=== PATIENT | female | born 2000 | race Two or more races ===

== ENCOUNTER → 2024-08-21 | Outpatient (CLI) | payer OTHER ==
[2024-08-21 16:17] LABS: Urine Bacteria None Seen /hpf (None Seen)
[2024-08-21 16:36] LABS: Urine Amorphous Crystal FEW /hpf (None Seen); Urine Blood Negative /uL (Negative); Urine Clarity Turbid (Clear); Urine Color Light-Yellow (Yellow); Urine Mucus FEW (None Seen); Urine Protein, UAD Negative (Negative); Urine Specific Gravity 1.015 (1.001-1.035); Urine Squamous Epithelial Cell MOD /hpf (<5); Urine Urobilinogen Normal (Negative); Urine WBC 7 /HPF (0-5); Urine pH 6.5 (5.0-9.0)
[2024-08-21 17:15] LABS: Protein, Urine 10.9 mg/dL (1-14)
[2024-08-21 17:17] LABS: Creatinine, Urine 80.63 mg/dL (30.0-125.0); Urine Protein/Creatinine Ratio 0.14
[2024-08-21 17:20] LABS: Albumin 4.3 g/dL (3.2-4.8); Anion Gap 8 (5-15); Aspartate Aminotransferase 13 U/L (13-40); Bilirubin, Total 0.3 mg/dL (0.2-1.0); Calcium 10.3 mg/dL (8.7-10.4); Carbon Dioxide 25 mmol/L (20-31); Chloride 104 mmol/L (98-107); Potassium 3.7 mmol/L (3.5-5.1); Sodium 137 mmol/L (136-145)
[2024-08-21 17:21] LABS: Alanine Aminotransferase < 9 U/L (7-40); Alkaline Phosphatase 130 U/L (46-116); BUN/Creatinine Ratio 12.5 (10.0-20.0); Blood Urea Nitrogen < 5 mg/dL (9-23); Glucose 70 mg/dL (74-106); Total Protein 6.8 g/dL (5.7-8.2)
== END | disposition home or self-care (01) ==
LOC: LAB 16:01
DX: O24.419 Gestational diabetes mellitus in pregnancy, unspecified control (principal); Z3A.00 Weeks of gestation of pregnancy not specified
CPT/HCPCS: 36415; 80053; 81001; 82570; 82951; 83036; 84156; 84550; 86850; 86900; 86901

== ENCOUNTER 2024-10-07 11:29 | Observation (INO) | payer OTHER ==
[2024-10-07] MEDS ORDERED: PREN-96 PO (12:14)
[2024-10-07] MEDS ORDERED: METF-370 PO (12:14)
--- NOTE | 2024-10-07 12:37 | DVH ---
CLINICAL HISTORY: Gestational diabetes. COMPARISON: None TECHNIQUE: biophysical profile was performed. Transabdominal sonographic images of the fetus we re obtained. FINDINGS: The fetus is in cephalic position. heart rate measures 157 BPM. Amniotic fluid index measures 11.9 cm. The placenta is anterior in position with no evidence of previa or abruption. Umbil ical cord is visualized at least partially around the neck, may be completely or near completely arou nd the neck. BPP profile is an overall score of 8/8, with 2/2 points for breathing, with at least one episode of breathing over a 30 second duration during a 30 minute observation, 2/2 points for m ovements, with 3 or more discrete body or limb movements, 2/2 points for tone, with one or more episodes of extremity extension with return to flexion, or opening and closing of hand, and 2/ 2 points for amniotic fluid, with at least 1 pocket of amniotic fluid that measures 2 cm in 2 perpend icular planes. IMPRESSION: 1. BPP score of 8/8. 2. Possible nuchal cord.
--- NOTE | 2024-10-07 13:23 | DVHDS2 ---
Physician Discharge Progress N Final Diagnosis: testing for GDM, A2 Operations or Procedures: Operations or Procedures 24yo IUP@35.2wks VSS NST reactive FKC/PTL precautions reviewed Other Interventions Other Interventions [address] [address] Ph: [phone] DIAGNOSTIC IMAGING Diagnostic Imaging Report : [id number] Signed PATIENT: MAKSIM PRIETOT: [id number] UNIT: [id number] : 2000 LOC: [facility] ROOM / BED: TRIAGE3 / A AGE / SEX: 24 / F ADM STATUS: ADM IN SERVICE 1132 ORDERING PHYSICIAN: ABBY LÓPEZ CNM PROCEDURE(s): BPP - BIOPHYSICAL PROFILE REASON: GDMA2 ORDER NUMBER(s): [id number], ACCESSION NUMBER(s): [id number] CLINICAL HISTORY: Gestational diabetes. COMPARISON: None TECHNIQUE: biophysical profile was performed. Transabdominal sonographic images of the fetus were obtained. FINDINGS: The fetus is in cephalic position. heart rate measures 157 BPM. Amniotic fluid index measures 11.9 cm. The placenta is anterior in position with no evidence of previa or abruption. Umbilical cord is visualized at least partially around the neck, may be completely or near completely around the neck. BPP profile is an overall score of 8/8, with 2/2 points for breathing, with at least one episode of breathing over a 30 second duration during a 30 minute observation, 2/2 points for movements, with 3 or more discrete body or limb movements, 2/2 points for tone, with one or more episodes of extremity extension with return to flexion, or opening and closing of hand, and 2/2 points for amniotic fluid, with at least 1 pocket of amniotic fluid that measures 2 cm in 2 perpendicular planes. IMPRESSION: 1. BPP score of 8/8. 2. Possible nuchal cord. ATED BY: HERMINIA HAYNES DO DICTATED DATE/TIME: 10/07/24 1235 SIGNED BY: HERMINIA HAYNES DO SIGNED DATE/TIME: 10/07/24 1235 CC: Condition on Discharge: Stable Disposition: Home Discharge Instructions: Diet: Consistent carbohydrate Activity: No Restrictions, As Tolerated Medications: see med list Follow Up Care: Specialist: f/u in 3 days Discharge Statement: "Patient was advised to return to the ER or call 911 if any headaches, dizziness , shortness of breath, chest pain, abdominal pain, bleeding, fevers, or worsening of medical condition. Patient was counseled about treatment plan, medications, possible side effects, patientverbalized understanding. All questions were answered to the best of my ability. This discharge took greater then 30 minutes in planning, reviewing documentation, counseling the patient, and discussing with other team members." Visit Coding OBGYN Date of Service: Oct 07, 2024 Billing Provider: ABBY LÓPEZ CNM COCONUT CANDY MAKER Common Visit Codes: [id number] OBS CARE (HIGH) COCONUT CANDY MAKER Procedure Codes: 71976-02- NON-STRESS TEST ABBY LÓPEZ CNM Oct 07, 2024 13:23
== END 2024-10-07 12:42 | disposition home or self-care (01) ==
LOC: LDRP 11:29
PROVIDERS: ADMIT Obstetrics & Gynecology; ATTEND Obstetrics & Gynecology
DX: O24.419 Gestational diabetes mellitus in pregnancy, unspecified control (principal); Z3A.35 35 weeks gestation of pregnancy
CPT/HCPCS: 76819; 81002; 82948; 94760; G0378

== ENCOUNTER 2024-10-14 13:21 | Emergency (ER) | payer OTHER ==
[~2024-10-14 13:21] MED LIST: METF-370 PO; PREN-96 PO
== END 2024-10-14 14:17 | disposition left against medical advice (07) ==
LOC: ER 13:21
DX: R05.9 Cough, unspecified (principal); Z53.21 Procedure and treatment not carried out due to patient leaving prior to being seen by health care provider

== ENCOUNTER 2024-10-14 19:32 | Observation (INO) | payer OTHER ==
[~2024-10-14] VITALS: Ht 154.9 cm; Wt 84.8 kg
--- NOTE | 2024-10-14 20:46 | DVHDS2 ---
Physician Discharge Progress N Final Diagnosis: GDM Operations or Procedures: Operations or Procedures NST/BPP YADIRA Condition on Discharge: Stable Disposition: Home Discharge Instructions: Diet: Consistent carbohydrate Activity: Light activity Follow Up/Referral: as scheduled Medications: N/A Follow Up Care: Discharge Statement: "Patient was advised to return to the ER or call 911 if any headaches, dizziness, shortness of breath, chest pain, abdominal pain, bleeding, fevers, or worsening of medical condition. Patient was counseled about treatment plan, medications, possible side effects, patientverbalized understanding. All questions were answered to the best of my ability. This discharge took greater then 30 minutes in planning, reviewing docume ntation, counseling the patient, and discussing with other team members." Visit Coding OBGYN Date of Service: Oct 14, 2024 Billing Provider: OLGA MCCONNELL DO SUMMER SESSIONS DIRECTOR Common Visit Codes: 17260-YPF/OBS SAME DATE (MOD) SUMMER SESSIONS DIRECTOR Procedure Codes: 05142-74- NON-STRESS TEST OLGA MCCONNELL DO Oct 14, 2024 20:46
--- NOTE | 2024-10-14 21:01 | DVH ---
EXAM: US BIOPHYSICAL PROFILE HISTORY: GDMA2 COMPARISON: US BIOPHYSICAL PROFILE on DOS: 10/07/24 TECHNIQUE: Multiple transabdominal real-time grayscale sonographic images through the gravid uterus of the fetus with duplex Doppler color flow and M-mode spectral analysis Findings/Impression: Single live intrauterine in vertex presentation with heart rate of 153 bpm. Biophysical profile was performed with 2 points for respirations, 2 points for movement, 2 points for tone and 2 points for amniotic fluid index. Biophysical profile score of 8/8. Amniotic fluid is within normal limits with YADIRA 14.5 cm and MVP 5.1 cm. Possible nuchal cord. Normal YADIRA (5-25 cm) Normal MVP (2-8 cm)
== END 2024-10-14 21:00 | disposition home or self-care (01) ==
LOC: LDRP 19:32
PROVIDERS: ADMIT Obstetrics & Gynecology; ATTEND Obstetrics & Gynecology
DX: O24.419 Gestational diabetes mellitus in pregnancy, unspecified control (principal); Z98.890 Other specified postprocedural states; Z79.899 Other long term (current) drug therapy; Z3A.36 36 weeks gestation of pregnancy
CPT/HCPCS: 76819; 81002; 82948; 82962; 94760; G0378

== ENCOUNTER 2024-10-17 15:10 | Observation (INO) | payer OTHER ==
--- NOTE | 2024-10-17 17:47 | DVH ---
EXAM: US BIOPHYSICAL PROFILE HISTORY: gdma2, leaking fluid COMPARISON: US BIOPHYSICAL PROFILE on DOS: 10/14/24, US BIOPHYSICAL PROFILE on DOS: 10/07/24 TECHNIQUE: Multiple transabdominal real-time grayscale sonographic images through the gravid uterus of the fetus with duplex Doppler color flow and M-mode spectral analysis Findings/Impression: Single live intrauterine in vertex presentation with heart rate of 134 bpm. Biophysical profile was performed with 2 points for respirations, 2 points for movement, 2 points for tone and 2 points for amniotic fluid index. Biophysical profile score of 8/8. Amniotic fluid is within normal limits with YADIRA 12.5 cm and MVP 6.4 cm. Possible nuchal cord. Normal YADIRA (5-25 cm) Normal MVP (2-8 cm)
--- NOTE | 2024-10-18 11:57 | DVHDS2 ---
Physician Discharge Progress N Final Diagnosis: gdm,r/o rom 36wks Operations or Procedures: Operations or Procedures nst 36wks,sono Condition on Discharge: Good Disposition: Home Discharge Instructions: Diet: Consistent carbohydrate Activity: No Restrictions, As Tolerated Medications: na Follow Up Care: Specialist: stewart sunday Discharge Statement: "Patient was advised to return to the ER or call 911 if any headaches, dizziness, shortness of breath, chest pain, abdominal pain, bleeding, fevers, or worsening of medical condition. Patient was counseled about treatment plan, medications, possible side effects, patientverbalized understanding. All questions were answered to the best of my ability. This discharge took greater then 30 minutes in planning, reviewing documentation, counseling the patient, and discussing with other team members." Visit Coding OBGYN Date of Service: Oct 17, 2024 Billing Provider: THELMA RAMIREZ DO LAP CHECKER Common Visit Codes: [id number] INP/OBS CARE(HIGH) LAP CHECKER Procedure Codes: 02609-23- NON-STRESS TEST THELMA RAMIREZ DO Oct 18, 2024 11:57
== END 2024-10-17 18:11 | disposition home or self-care (01) ==
LOC: LDRP 15:50
PROVIDERS: ADMIT Obstetrics & Gynecology; ATTEND Obstetrics & Gynecology
DX: O24.419 Gestational diabetes mellitus in pregnancy, unspecified control (principal); Z3A.36 36 weeks gestation of pregnancy; Z79.899 Other long term (current) drug therapy
CPT/HCPCS: 76819; 81002; 82948; 82962; 84112; 94760; G0378

== ENCOUNTER 2024-10-19 12:57 | Observation (INO) | payer OTHER ==
[~2024-10-19] VITALS: Ht 162.6 cm; Wt 68.0 kg
--- NOTE | 2024-10-19 14:04 | DVH ---
BIOPHYSICAL PROFILE HISTORY: GDMA2 TECHNIQUE: Multiple transabdominal real-time grayscale sonographic images through the gravid uterus of the fetus with duplex Doppler color flow and M-mode spectral analysis FINDINGS: BIOPHYSICAL PROFILE: breathing score: 2 movement score: 2 tone score: 2 Quantitative YADIRA score: 2 (YADIRA: 11.9 Cm.) Total score: 8/8 The cervix nonvisualized Single live fetus in cephalic presentation. heart rate 130 beats per minute. Anterior Grade 2 placenta without previa or abruption Single live fetus at 37 weeks 0 Biophysical profile score 8/8 corresponding to an HERMINIO of 11/09/2024 Estimated weight not given g IMPRESSION: 1. Biophysical profile score: 8/8 HS:Y
--- NOTE | 2024-10-19 17:16 | DVHDS2 ---
Physician Discharge Progress N Final Diagnosis: iup at 37wks with gdm Operations or Procedures: Operations or Procedures nst 37wks,sono Condition on Discharge: Good Disposition: Home Discharge Instructions: Diet: Regular, Consistent carbohydrate Activity: Light activity Medications: na Follow Up Care: Specialist: 2d Discharge Statement: "Patient was advised to return to the ER or call 911 if any headaches, dizziness, shortness of breath, chest pain, abdominal pain, bleeding, fevers, or worsening of medical condition. Patient was counseled about treatment plan, medications, possible side effects, patientverbalized understanding. All questions were answered to the best of my ability. This discharge took greater then 30 minutes in planning, reviewing documentation, counseling the patient, and discussing with other team members." Visit Coding OBGYN Date of Service: Oct 19, 2024 Billing Provider: THELMA RAMIREZ DO BORING MACHINE OPERATOR Common Visit Codes: [id number] INP/OBS CARE(HIGH) BORING MACHINE OPERATOR Procedure Codes: 86411-18- NON-STRESS TEST THELMA RAMIREZ DO Oct 19, 2024 17:16
== END 2024-10-19 14:26 | disposition home or self-care (01) ==
LOC: LDRP 12:57
PROVIDERS: ADMIT Obstetrics & Gynecology; ATTEND Obstetrics & Gynecology
DX: O24.419 Gestational diabetes mellitus in pregnancy, unspecified control (principal); Z3A.37 37 weeks gestation of pregnancy; Z79.899 Other long term (current) drug therapy; Z98.890 Other specified postprocedural states
CPT/HCPCS: 76818; 81002; 82962; 94760; G0378; 76819

== ENCOUNTER 2024-10-22 11:54 | Observation (INO) | payer OTHER ==
[~2024-10-22] VITALS: Ht 154.9 cm; Wt 86.2 kg
--- NOTE | 2024-10-22 12:49 | DVH ---
BIOPHYSICAL PROFILE HISTORY: GDMA1, nuchal x2 TECHNIQUE: Multiple transabdominal real-time grayscale sonographic images through the gravid uterus of the fetus with duplex Doppler color flow and M-mode spectral analysis FINDINGS: BIOPHYSICAL PROFILE: breathing score: 2 movement score: 2 tone score: 2 Quantitative YADIRA score: 2 (YADIRA: 10.0 Cm.) Total score: 8/8 Single live fetus in Vertex presentation. heart rate 128 beats per minute. Anterior placenta without previa or abruption Biophysical profile score 8/8 corresponding to an HERMINIO of 11/09/24 IMPRESSION: Biophysical profile score: 8/8 A nuchal cord x 1 is visualized.
== END 2024-10-22 13:27 | disposition home or self-care (01) ==
LOC: UNDOADMOB 11:54 → LDRP 11:54 → UNDODISOB 13:27
PROVIDERS: ADMIT Obstetrics & Gynecology; ATTEND Obstetrics & Gynecology
DX: O24.419 Gestational diabetes mellitus in pregnancy, unspecified control (principal); O69.81X0 Labor and delivery complicated by cord around neck, without compression, not applicable or unspecified; Z3A.37 37 weeks gestation of pregnancy; Z79.899 Other long term (current) drug therapy
CPT/HCPCS: 76819; 81002; 82948; 82962; 94760; G0378

== ENCOUNTER 2024-10-25 09:25 | Observation (INO) | payer OTHER ==
[~2024-10-25] VITALS: Ht 154.9 cm; Wt 84.4 kg
--- NOTE | 2024-10-25 20:37 | DVH ---
BIOPHYSICAL PROFILE HISTORY: GDM TECHNIQUE: Multiple transabdominal real-time grayscale sonographic images through the gravid uterus of the fetus with duplex Doppler color flow and M-mode spectral analysis FINDINGS: BIOPHYSICAL PROFILE: breathing score: 2 movement score: 2 tone score: 2 Quantitative: 2 YADIRA score: 15.17 (YADIRA: 7.33 Cm.) Total score: 8/8 The cervix not measured Single live fetus in cephalic presentation. heart rate 157 beats per minute. Anterior Grade 2-3 placenta without previa or abruption Single live fetus at 37 weeks 6 Biophysical profile score 8/8 corresponding to an HERMINIO of 11/09/2024 Estimated weight calculus g IMPRESSION: 1. Biophysical profile score: 8/8 2. Nuchal cord seen on prior study.
--- NOTE | 2024-10-26 09:00 | DVHDS2 ---
Physician Discharge Progress N Final Diagnosis: gdm 37wks Operations or Procedures: Operations or Procedures nst,sono Condition on Discharge: Good Disposition: Home Discharge Instructions: Diet: Regular, Consistent carbohydrate Activity: Light activity Medications: na Follow Up Care: Specialist: 3d Discharge Statement: "Patient was advised to return to the ER or call 911 if any headaches, dizziness, shortness of breath, chest pain, abdominal pain, bleeding, fevers, or worsening of medical condition. Patient was counseled about treatment plan, medications, possible side effects, patientverbalized understanding. All questions were answered to the best of my ability. This discharge took greater then 30 minutes in planning, reviewing documentation, counseling the patient, and discussing with other team members." Visit Coding OBGYN Date of Service: Oct 25, 2024 Billing Provider: THELMA RAMIREZ DO ULTRASOUND TECH Common Visit Codes: [id number] INP/OBS CARE (HIGH) ULTRASOUND TECH Procedure Codes: 64442-41- NON-STRESS TEST THELMA RAMIREZ DO Oct 26, 2024 09:00
== END 2024-10-25 20:52 | disposition home or self-care (01) ==
LOC: LDRP 19:26
PROVIDERS: ADMIT Obstetrics & Gynecology; ATTEND Obstetrics & Gynecology
DX: O24.419 Gestational diabetes mellitus in pregnancy, unspecified control (principal); Z3A.37 37 weeks gestation of pregnancy; Z79.899 Other long term (current) drug therapy; Z98.890 Other specified postprocedural states
CPT/HCPCS: 76818; 81002; 94760; G0378; 76819

== ENCOUNTER 2024-10-28 20:06 | Inpatient (IN) | payer OTHER ==
[~2024-10-28] VITALS: Ht 157.5 cm; Wt 81.6 kg
[2024-10-28] MEDS ORDERED: NALBUPHINE HCL 10 MG/1ml INJECTION IV PRN (21:00)
[2024-10-28] MEDS ORDERED: NITROGLYCERIN 0.4 MG SL TAB SL PRN (21:00)
[2024-10-28] MEDS ORDERED: LIDOCAINE 2%HCL (LOCAL ANESTH.) INJ 20ML MDV IJ PRN (21:00)
[2024-10-28] MEDS ORDERED: LACT. RINGERS/OXYTOCIN 20UNITS 500 ML IV ONE (21:00)
[2024-10-28] MEDS ORDERED: MORPHINE SULFATE INJ 2 MG/ml SYRG IV PRN (21:00)
--- NOTE | 2024-10-28 21:41 | DVHHP2 ---
OB CC & HPI Date Date of Admission: Oct 28, 2024 Patient Identification: : 2 Para: 1 EDC: Nov 09, 2024 EGA: 38.2 weeks Chief Complaints: Reason for admission: induction of labor Indication for induction: maternal distance, other (GDM A2) Admission Nurse Assessment Rev: Yes History of Present Complaints 24 yo F IUP@38.2wks presents to labor and delivery for IOL for GDM A2. Pt denies UCs/LOF/VB/ROBLES/vision changes/RUQ pain. Endorses +FM. PNC: Routine PNC at [facility], adequate visits, PNC complicated by GDM A2. Dating based on LMP c/w 7wk sono, GBS negative. OB hx: #1 - 2019, , PreE, PPH w/blood transfusion #2 - current Past Medical History Cardiac: No pertinent Hx Pulmonary: No pertinent Hx Central Nervous System: No pertinent Hx GI: No pertinent Hx Hemotology/Oncology: No pertinent Hx Hepatobiliary: No pertinent Hx Psychiatric: Anxiety (not on medication), Depression (not on medication) Musculoskeletal: No pertinent Hx Rheumotologic: No pertinent Hx Infectious Disease: No peritnent Hx ENT: No pertinent Hx Renal/: No pertinent Hx Endocrine: No pertinent Hx Dermatology: No pertinent Hx Past Surgical History: Other (wisdom teeth extractions under sedation) OB History OB History Care: Good Care Ultrasounds: Normal mid trimester US Obstetrical Complications: Gestational Diabetes (A2) Medical Complications: Psychiatric (Anxiety/Depression (not on meds)) Allergies: Coded Allergies: Oxycodone (Verified Allergy, Unknown, 10/07/24) Home Meds Reported Medications Vit W/ Ferrous Fumara ( One Daily) Daily Tab, 1 TAB PO DAILY, #90 TAB 3 Refills 10/07/24 Metformin Hydrochloride (Metformin Hcl) 500 Mg Tab, 500 MG PO DAILY for 30 Days, MG 10/07/24 Current Medications Current Medications Medications (Trade) Dose Ordered Sig/Malika Route PRN Reason Start Time Stop Time Status Last Admin Lactated Ringer's 1,000 ml @ 125 mls/hr Q8H IV 10/28/24 21:00 UNV Nalbuphine HCl (Nubain) 10 mg Q4HP PRN IV MODERATE PAIN (4-6 PAIN SCALE) 10/28/24 21:00 UNV Witch Kisha (Tucks) 1 pad PRN PRN TOP PERINEAL AREA DISCOMFORT 10/28/24 21:00 UNV Sodium Lauryl Sulfate (Phisoderm) 240 ml PRN PRN TOP PERINEAL AREA DISCOMFORT 10/28/24 21:00 UNV Benzocaine (Dermoplast) 1 applic PRN PRN TOP PERINEAL AREA DISCOMFORT 10/28/24 21:00 UNV Misoprostol (Cytotec) 50 mcg Q4HPRN PRN PO CERVICAL RIPENING 10/28/24 21:00 UNV Lidocaine HCl (Xylocaine) 20 ml ONCE PRN IJ PERINEAL AREA DISCOMFORT 10/28/24 21:00 UNV Nitroglycerin (Ntrostat Sublingual) 0.4 mg Q5MINP PRN SL FOR CHEST PAIN 10/28/24 21:00 UNV Morphine Sulfate 2 mg Q30M PRN IV FOR CHEST PAIN 10/28/24 21:00 UNV Ondansetron HCl (Zofran) 4 mg Q6HPRN PRN IV NAUSEA / VOMITING 10/28/24 21:00 UNV Family & Social History Family/Social History Past Family/Social History: Mother- diabetes Blood Type: O- (received at 36 wks) Rubella: immune RPR/VDRL: Negative GBS Status: Negative HBsAG: Negative Review of Systems Constitutional: No symptom reported Ears, Nose, & Throat: No symptom reported Eyes: No symptom reported Pulmonary/Respiratory: No symptom reported Cardiovascular: No symptom reported Gastrointestinal: No symptom reported Genitourinary: No symptom reported Musculoskeletal: No symptom reported Skin: No symptom reported Psychiatric: No symptom reported Endocrine: No symptom reported Hemotologic/Lymphatic: No symptom reported OB Admission Exam Physical Exam Vitals: VSS, see chart HEENT: TMs Normal, Fontanelles Normal, Nasal Mucosa Normal, Eyes non-injected, Oropharynx Normal, PERRLA, Moist Membranes, EOMI Heart: Rhythm Normal Lungs: Clear Abdomen: Gravid Extremities: Normal Reflexes: Normal Pelvic Exam: Cervical exam done by RN Cervical Dilatation: Fingertip Effacement: 0% Station: -3 Membranes: Intact Heart Rate: 140's Accelerations: Accelerations Present Decelerations: No Decelerations Short Term Variability: Present Respiratory Physician Variability: Average (6-25) Contractions on Admission: 6-10 Minutes Apart Frequency of Contractions: 2-10 Duration: 40-80 Intensity: Mild OB Plan Plan Admitting Diagnosis: 23yo IUP@38.2wks Induction of Labor for GDM A2 and maternal distance RH Negative Category I EFM Intact Membranes GBS negative GBS negative Plan: Induction Induction Methd: Misoprostol protocol Other Plan: Admit to L&D Informed consent obtained Discussed risks, benefits, alternatives of IOL for GDM,A2 and maternal distance with pt. Pt consents to IOL with PO cytotec. Discussed potential of starting pitocin later with pt. Pt agrees with POC. Blood sugar monitoring q4hrs then q2hrs in active labor 2 units PRBC on hold ordered monitoring per order Routine labs ordered Pain mgmt PRN Frequent position changes in and out of bed encouraged Limit SVE unless necessary Intrauterine resuscitation PRN Anticipate CNM will consult with Dr. Gonzáles PRN Visit Coding OBGYN Date of Service: Oct 28, 2024 Billing Provider: ABBY LÓPEZ CNM PICK REMOVER Common Visit Codes: [id number] INP/OBS CARE (HIGH) KARLEE TOLEDO MDWF Oct 28, 2024 21:41
[2024-10-28 22:13] LABS: Basophils # (auto) 0 10 ^3/uL (0-0.2); Basophils % (auto) 0.5 % (0.0-2.0); Eosinophils # (auto) 0.1 10 ^3/uL (0-0.8); Eosinophils % (auto) 1.7 % (0.0-7.0); Hematocrit 33.7 % (36.0-46.0); Hemoglobin 11.7 g/dL (12.2-16.2); Lymphocytes % (auto) 23.2 % (10.0-50.0); Mean Corpuscular Hemoglobin 29.4 pg (28.0-32.0); Mean Corpuscular Hgb Conc. 34.7 g/dL (32.0-36.0); Mean Corpuscular Volume 84.6 fL (80.0-100.0); Monocytes # (auto) 0.6 10 ^3/uL (0-1.3); Monocytes % (auto) 6.4 % (0.0-12.0); Neutrophils # (auto) 5.9 10 ^3/uL (1.6-8.6); Neutrophils % (auto) 68.2 % (37.0-80.0); Nucleated Red Blood Cells % 0.1 %; Platelet Count (auto) 218 10^3/uL (140-450); Red Blood Cells 3.98 10^6/uL (4.0-5.20); Red Cell Distribution Width 14.8 % (11.8-14.3); White Blood Cell 8.7 10^3/uL (4.4-10.8)
[2024-10-28 22:25] LABS: Albumin 3.9 g/dL (3.2-4.8); Anion Gap 12 (5-15); Aspartate Aminotransferase 18 U/L (13-40); BUN/Creatinine Ratio 14.3 (10.0-20.0); Calcium 9.4 mg/dL (8.7-10.4); Carbon Dioxide 21 mmol/L (20-31); Chloride 105 mmol/L (98-107); Sodium 138 mmol/L (136-145); Total Protein 5.9 g/dL (5.7-8.2); Urine Bacteria FEW /hpf (None Seen); Urine Blood Negative /uL (Negative); Urine Clarity Clear (Clear); Urine Color Light-Yellow (Yellow); Urine Protein, UAD Negative (Negative); Urine Specific Gravity 1.014 (1.001-1.035); Urine Squamous Epithelial Cell FEW /hpf (<5); Urine Urobilinogen Normal (Negative); Urine WBC 1 /HPF (0-5); Urine pH 6.5 (5.0-9.0)
[2024-10-28 22:34] LABS: INR 0.97 (0.9-1.15); Partial Thromboplastin Time 25.4 SEC (24.5-34.5); Prothrombin Time 10.3 sec (9.3-11.8)
[2024-10-28 22:38] LABS: Alanine Aminotransferase < 9 U/L (7-40); Alkaline Phosphatase 185 U/L (46-116); Amphetamine Screen, Urine Neg (NEGATIVE); Barbiturate Scree,Urine Neg (NEGATIVE); Benzodiazephine Screen, Urine Neg (NEGATIVE); Bilirubin, Total 0.3 mg/dL (0.2-1.0); Blood Urea Nitrogen 6 mg/dL (9-23); Cannabinoid Screen, Urine Neg (NEGATIVE); Cocaine Screen, Urine Neg (NEGATIVE); Glucose 121 mg/dL (74-106); Opiate Scree,Urine Neg (NEGATIVE); Phencyclidine Screen, Urine Neg (NEGATIVE); Potassium 3.1 mmol/L (3.5-5.1)
[2024-10-28] MEDS: LACTATED RINGER'S 1,000 ML IV SCH (23:20)
[2024-10-28] MEDS: WITCH HAZEL-GLYCERIN PAD TOP PRN (23:21)
[2024-10-28] MEDS: POTASSIUM CHL 20 Meq TABLET PO ONE (23:21)
[2024-10-28] MEDS: PHISODERM TOP SOLN 240ML BTL TOP PRN (23:21)
[2024-10-28] MEDS: DERMOPLAST 60ML BOTTLE TOP PRN (23:21)
[2024-10-28] MEDS: miSOPROStol 50 MCG per PRE-CUT 1/2 TAB PO PRN (23:44)
--- NOTE | 2024-10-29 00:23 | DVH ---
OB ULTRASOUND, LIMITED CLINICAL INDICATION: induction of labor/ unable to confirm presenting part TECHNIQUE: Limited Multiple grayscale ultrasound and M-mode images were obtained of the pelvis for ev aluation of intrauterine . COMPARISON: None FINDINGS /impression: Cephalic presentation of the intrauterine .
--- NOTE | 2024-10-29 07:45 | DVHPN2 ---
Chief Complaints Patient reports: No new complaints Nursing reports: No new complaints Objective Medications Current Medications Medications (Trade) Dose Ordered Sig/Malika Route PRN Reason Start Time Stop Time Status Last Admin Benzocaine (Dermoplast) 1 applic PRN PRN TOP PERINEAL AREA DISCOMFORT 10/28/24 21:00 10/28/24 23:21 Lactated Ringer's 1,000 ml @ 125 mls/hr Q8H IV 10/28/24 21:00 10/29/24 01:53 Lidocaine HCl (Xylocaine) 20 ml ONCE PRN IJ PERINEAL AREA DISCOMFORT 10/28/24 21:00 Misoprostol (Cytotec) 50 mcg Q4HPRN PRN PO CERVICAL RIPENING 10/28/24 21:00 10/29/24 04:00 Morphine Sulfate 2 mg Q30M PRN IV FOR CHEST PAIN 10/28/24 21:00 Cancel Nalbuphine HCl (Nubain) 10 mg Q4HP PRN IV MODERATE PAIN (4-6 PAIN SCALE) 10/28/24 21:00 Nitroglycerin (Ntrostat Sublingual) 0.4 mg Q5MINP PRN SL FOR CHEST PAIN 10/28/24 21:00 Cancel Ondansetron HCl (Zofran) 4 mg Q6HPRN PRN IV NAUSEA / VOMITING 10/28/24 21:00 Sodium Lauryl Sulfate (Phisoderm) 240 ml PRN PRN TOP PERINEAL AREA DISCOMFORT 10/28/24 21:00 10/28/24 23:21 Witch Kisha (Tucks) 1 pad PRN PRN TOP PERINEAL AREA DISCOMFORT 10/28/24 21:00 10/28/24 23:21 Others ve-ft/-3/thick Studies Laboratory Tests 10/28/24 21:45 Test 10/28/24 21:45 Range/Units Serum Glucose 121 H 74-106 mg/dL Ass/Plan Assessment iol for gdm Plan rec 2nd cytotec Visit Coding OBGYN Date of Service: Oct 29, 2024 Billing Provider: THELMA RAMIREZ DO GUM DIPPER Common Visit Codes: [id number] INP/OBS CARE (HIGH), 74573-[id number] INP/OBS CARE(LOW), 38951-[id number] INP/OBS CARE(HIGH) GUM DIPPER Procedure Codes: 07284-09- NON-STRESS TEST THELMA RAMIREZ DO Oct 29, 2024 07:45
--- NOTE | 2024-10-29 10:00 | DVHPN2 ---
Chief Complaints Patient reports: No new complaints Nursing reports: No new complaints Objective Medications Current Medications Medications (Trade) Dose Ordered Sig/Malika Route PRN Reason Start Time Stop Time Status Last Admin Benzocaine (Dermoplast) 1 applic PRN PRN TOP PERINEAL AREA DISCOMFORT 10/28/24 21:00 10/28/24 23:21 Lactated Ringer's 1,000 ml @ 125 mls/hr Q8H IV 10/28/24 21:00 10/29/24 01:53 Lidocaine HCl (Xylocaine) 20 ml ONCE PRN IJ PERINEAL AREA DISCOMFORT 10/28/24 21:00 Misoprostol (Cytotec) 50 mcg Q4HPRN PRN PO CERVICAL RIPENING 10/28/24 21:00 10/29/24 08:14 Morphine Sulfate 2 mg Q30M PRN IV FOR CHEST PAIN 10/28/24 21:00 Cancel Nalbuphine HCl (Nubain) 10 mg Q4HP PRN IV MODERATE PAIN (4-6 PAIN SCALE) 10/28/24 21:00 Nitroglycerin (Ntrostat Sublingual) 0.4 mg Q5MINP PRN SL FOR CHEST PAIN 10/28/24 21:00 Cancel Ondansetron HCl (Zofran) 4 mg Q6HPRN PRN IV NAUSEA / VOMITING 10/28/24 21:00 Sodium Lauryl Sulfate (Phisoderm) 240 ml PRN PRN TOP PERINEAL AREA DISCOMFORT 10/28/24 21:00 10/28/24 23:21 Witch Kisha (Tucks) 1 pad PRN PRN TOP PERINEAL AREA DISCOMFORT 10/28/24 21:00 10/28/24 23:21 Others exam unchanged Studies Laboratory Tests 10/28/24 21:45 Test 10/28/24 21:45 Range/Units Serum Glucose 121 H 74-106 mg/dL Ass/Plan Assessment iol for gdm Plan rec another cytotc Visit Coding OBGYN Date of Service: Oct 29, 2024 Billing Provider: THELMA RAMIREZ DO LEDGE MAN Common Visit Codes: [id number] OBS CARE (HIGH) LEDGE MAN Procedure Codes: 55121-34- NON-STRESS TEST THELMA RAMIREZ DO Oct 29, 2024 10:00
--- NOTE | 2024-10-29 12:27 | DVHPN2 ---
Chief Complaints Patient reports: No new complaints Nursing reports: No new complaints Objective Medications Current Medications Medications (Trade) Dose Ordered Sig/Malika Route PRN Reason Start Time Stop Time Status Last Admin Benzocaine (Dermoplast) 1 applic PRN PRN TOP PERINEAL AREA DISCOMFORT 10/28/24 21:00 10/28/24 23:21 Lactated Ringer's 1,000 ml @ 125 mls/hr Q8H IV 10/28/24 21:00 10/29/24 01:53 Lidocaine HCl (Xylocaine) 20 ml ONCE PRN IJ PERINEAL AREA DISCOMFORT 10/28/24 21:00 Misoprostol (Cytotec) 50 mcg Q4HPRN PRN PO CERVICAL RIPENING 10/28/24 21:00 10/29/24 12:02 Morphine Sulfate 2 mg Q30M PRN IV FOR CHEST PAIN 10/28/24 21:00 Cancel Nalbuphine HCl (Nubain) 10 mg Q4HP PRN IV MODERATE PAIN (4-6 PAIN SCALE) 10/28/24 21:00 Nitroglycerin (Ntrostat Sublingual) 0.4 mg Q5MINP PRN SL FOR CHEST PAIN 10/28/24 21:00 Cancel Ondansetron HCl (Zofran) 4 mg Q6HPRN PRN IV NAUSEA / VOMITING 10/28/24 21:00 Sodium Lauryl Sulfate (Phisoderm) 240 ml PRN PRN TOP PERINEAL AREA DISCOMFORT 10/28/24 21:00 10/28/24 23:21 Witch Kisha (Tucks) 1 pad PRN PRN TOP PERINEAL AREA DISCOMFORT 10/28/24 21:00 10/28/24 23:21 Others ve-1cm/50/-2 Studies Laboratory Tests 10/28/24 21:45 Test 10/28/24 21:45 Range/Units Serum Glucose 121 H 74-106 mg/dL Ass/Plan Assessment iol for gdm Plan rec 4 cytotec will attempt saucedo in few hrs Visit Coding OBGYN Date of Service: Oct 29, 2024 Billing Provider: THELMA RAMIREZ DO LEARNING FACILITATOR Common Visit Codes: [id number] INP/OBS CARE(HIGH) LEARNING FACILITATOR Procedure Codes: 37320-35- NON-STRESS TEST THELMA RAMIREZ DO Oct 29, 2024 12:27
--- NOTE | 2024-10-29 16:44 | DVHPN2 ---
CNM Labor Progress Note Date and Time Seen Date Seen: Oct 29, 2024 Time Seen: 16:15 Subjective Patient reports: No new complaints Subjective Comment Patient reports she is managing the induction well, just feels lower abdominal cramping. Objective Vital Signs VSS, see chart Monitoring Method Monitoring Method: External Heart Rate Heart Rate Baseline: 140 Heart Rate Variability: Moderate Presence of FHR Accelerations: Yes Presence of FHR Decelerations: Yes Heart Rate Type of Decel: Late Decelerations (intermittently) Changes in Trends of Patterns: No Are all 5 Components of the FH: Yes Contractions Contractions Frequency: Other (2-4) Duration of Contraction: 60 Membranes Membranes: Intact Vaginal Exam Vag Exam Deferred: No (Attempted to place saucedo ballon with cervical exam; patient not able to tolerate the pain; will continue with misoprostol.) Vaginal Exam Dilation: 2 Vaginal Exam Effacement: 50 Vaginal Exam Station: -2 Vaginal Exam Presentation: VTX Vaginal Exam Show: None Medications Medications - Pitocin: No Medications - Pain Medications: PRN Medication - Epidural: No Medication - Other misoprostol 50 mcg PO x4 doses Lab Results Lab Results Current Medications Medications (Trade) Dose Ordered Sig/Malika Start Time Stop Time Status Last Admin Dose Admin Lactated Ringer's 1,000 ml @ 125 mls/hr Q8H 10/28/24 21:00 10/29/24 14:51 125 MLS/HR Nalbuphine HCl (Nubain) 10 mg Q4HP PRN 10/28/24 21:00 Mariaa Beard (Tucks) 1 pad PRN PRN 10/28/24 21:00 10/28/24 23:21 1 PAD Sodium Lauryl Sulfate (Phisoderm) 240 ml PRN PRN 10/28/24 21:00 10/28/24 23:21 240 ML Benzocaine (Dermoplast) 1 applic PRN PRN 10/28/24 21:00 10/28/24 23:21 1 APPLIC Misoprostol (Cytotec) 50 mcg Q4HPRN PRN 10/28/24 21:00 10/29/24 12:02 50 MCG Lidocaine HCl (Xylocaine) 20 ml ONCE PRN 10/28/24 21:00 Ondansetron HCl (Zofran) 4 mg Q6HPRN PRN 10/28/24 21:00 Oxytocin 500 ml @ 999 mls/hr Q31M ONCE 10/28/24 21:00 10/28/24 21:48 DC Potassium Chloride (Klor-Con Tablet) 40 meq ONCE ONCE 10/28/24 23:00 10/28/24 23:12 DC 10/28/24 23:21 40 MEQ Laboratory Tests Test 10/29/24 14:12 10/28/24 21:45 Range/Units POC Glucose 134 H 70-106 mg/dl White Blood Count 8.7 4.4-10.8 10^3/uL Red Blood Count 3.98 L 4.0-5.20 10^6/uL Hemoglobin 11.7 L 12.2-16.2 g/dL Hematocrit 33.7 L 36.0-46.0 % Mean Corpuscular Volume 84.6 80.0-100.0 fL Mean Corpuscular Hemoglobin 29.4 28.0-32.0 pg Mean Corpuscular Hemoglobin Concent 34.7 32.0-36.0 g/dL Red Cell Distribution Width 14.8 H 11.8-14.3 % Platelet Count 218 140-450 10^3/uL Mean Platelet Volume 8.8 6.9-10.8 fL Neutrophils (%) (Auto) 68.2 37.0-80.0 % Lymphocytes (%) (Auto) 23.2 10.0-50.0 % Monocytes (%) (Auto) 6.4 0.0-12.0 % Eosinophils (%) (Auto) 1.7 0.0-7.0 % Basophils (%) (Auto) 0.5 0.0-2.0 % Neutrophils # (Auto) 5.9 1.6-8.6 10 ^3/uL Lymphocytes # (Auto) 2.0 0.4-5.4 10 ^3/uL Monocytes # (Auto) 0.6 0-1.3 10 ^3/uL Eosinophils # (Auto) 0.1 0-0.8 10 ^3/uL Basophils # (Auto) 0 0-0.2 10 ^3/uL Nucleated Red Blood Cells 0.1 % Prothrombin Time 10.3 9.3-11.8 sec Prothrombin Time INR 0.97 0.9-1.15 Activated Partial Thromboplast Time 25.4 24.5-34.5 SEC Urine Color Light-yellow Yellow Urine Clarity Clear Clear Urine pH 6.5 5.0-9.0 Urine Specific [place] 1.014 1.001-1.035 Urine Protein Negative Negative Urine Ketones 2+ H Negative Urine Blood Negative Negative /uL Urine Nitrite Negative Negative Urine Bilirubin Negative Negative Urine Urobilinogen Normal Negative mg/dL Urine Leukocyte Esterase Negative Negative /uL Urine RBC None seen 0 - 4 /hpf Urine Microscopic WBC 1 0-5 /HPF Urine Squamous Epithelial Cells Few <5 /hpf Urine Bacteria Few H None Seen /hpf Urine Glucose Normal Normal mg/dL Sodium Level 138 136-145 mmol/L Potassium Level 3.1 L 3.5-5.1 mmol/L Chloride Level 105 98-107 mmol/L Carbon Dioxide Level 21 20-31 mmol/L Anion Gap 12 5-15 Blood Urea Nitrogen 6 L 9-23 mg/dL Creatinine 0.42 L 0.550-1.02 mg/dL Glomerular Filtration Rate Calc 138 >90 mL/min BUN/Creatinine Ratio 14.3 10.0-20.0 Serum Glucose 121 H 74-106 mg/dL Calcium Level 9.4 8.7-10.4 mg/dL Total Bilirubin 0.3 0.2-1.0 mg/dL Aspartate Amino Transferase (AST) 18 13-40 U/L Alanine Aminotransferase (ALT) < 9 7-40 U/L Alkaline Phosphatase 185 H 46-116 U/L Total Protein 5.9 5.7-8.2 g/dL Albumin 3.9 3.2-4.8 g/dL Urine Opiates Screen Neg NEGATIVE Urine Fentanyl Screen Neg NEGATIVE Urine Barbiturates Screen Neg NEGATIVE Urine Phencyclidine Screen Neg NEGATIVE Urine Amphetamines Screen Neg NEGATIVE Urine Benzodiazepines Screen Neg NEGATIVE Urine Cocaine Screen Neg NEGATIVE Urine Cannabinoids Screen Neg NEGATIVE Treponema pallidum Antibody Non-reactive Negative Hepatitis B Surface Antigen Negative Negative Hepatitis C Antibody Negative Negative HIV (1&2) Antibody Negative Negative Rubella IgG Antibody Pending Assessment Assessment 23yo IUP@38.3wks Induction of Labor for GDM A2 and maternal distance RH Negative Category II EFM Intact Membranes GBS negative Plan Plan Continue IOL with PO cytotec. Discussed attempting saucedo balloon insertion again for Cervical ripening later, pt agrees. Blood sugar monitoring q4hrs then q2hrs in active labor 2 units PRBC on hold ordered monitoring per order Pain mgmt PRN Frequent position changes in and out of bed encouraged Limit SVE unless necessary Intrauterine resuscitation PRN Dr. Gonzáles consulted, pt given the option of going home when Category I EFM and start IOL later in the week. Pt declined and wants to stay and continue IOL today since she lives in [place] (1.5 hrs away). Anticipate Plan discussed with: Patient, Spouse Visit Coding OBGYN Date of Service: Oct 29, 2024 Billing Provider: ABBY LÓPEZ CNM HAND FOLDER Common Visit Codes: [id number] INP/OBS CARE(HIGH) KARLEE TOLEDO MDWF Oct 29, 2024 16:43
--- NOTE | 2024-10-29 21:38 | DVHPN2 ---
[facility] Labor Progress Note Date and Time Seen Date Seen: Oct 29, 2024 Time Seen: 21:15 Subjective Patient reports: No new complaints Subjective Comment Patient reports feeling contractions as mild cramps Objective Vital Signs VSS, see chart Monitoring Method Monitoring Method: External Heart Rate Heart Rate Baseline: 130 Heart Rate Variability: Moderate Presence of FHR Accelerations: Yes Presence of FHR Decelerations: No Changes in Trends of Patterns: No Are all 5 Components of the FH: Yes Contractions Contractions Frequency: Other (3-4) Duration of Contraction: 60 Contractions Intensity: Mild Contractions Resting Tone: Relaxed Membranes Membranes: Ruptured (spontaneous) Amniotic Fluid Color: Clear Vaginal Exam Vag Exam Deferred: No Vaginal Exam Dilation: 2 Vaginal Exam Effacement: 50 Vaginal Exam Station: -2 Vaginal Exam Presentation: VTX Vaginal Exam Show: None Medications Medications - Pitocin: No Medication - Epidural: No Medication - Other Misoprostol 50 mcg PO x5 doses Lab Results Lab Results Current Medications Medications (Trade) Dose Ordered Sig/Malika Start Time Stop Time Status Last Admin Dose Admin Lactated Ringer's 1,000 ml @ 125 mls/hr Q8H 10/28/24 21:00 10/29/24 14:51 125 MLS/HR Nalbuphine HCl (Nubain) 10 mg Q4HP PRN 10/28/24 21:00 Witjerrell Beard (Tucks) 1 pad PRN PRN 10/28/24 21:00 10/28/24 23:21 1 PAD Sodium Lauryl Sulfate (Phisoderm) 240 ml PRN PRN 10/28/24 21:00 10/28/24 23:21 240 ML Benzocaine (Dermoplast) 1 applic PRN PRN 10/28/24 21:00 10/28/24 23:21 1 APPLIC Misoprostol (Cytotec) 50 mcg Q4HPRN PRN 10/28/24 21:00 10/29/24 17:16 50 MCG Lidocaine HCl (Xylocaine) 20 ml ONCE PRN 10/28/24 21:00 Ondansetron HCl (Zofran) 4 mg Q6HPRN PRN 10/28/24 21:00 Oxytocin 500 ml @ 999 mls/hr Q31M ONCE 10/28/24 21:00 10/28/24 21:48 DC Potassium Chloride (Klor-Con Tablet) 40 meq ONCE ONCE 10/28/24 23:00 10/28/24 23:12 DC 10/28/24 23:21 40 MEQ Laboratory Tests Test 10/29/24 21:55 10/28/24 21:45 Range/Units POC Glucose 155 H 70-106 mg/dl White Blood Count 8.7 4.4-10.8 10^3/uL Red Blood Count 3.98 L 4.0-5.20 10^6/uL Hemoglobin 11.7 L 12.2-16.2 g/dL Hematocrit 33.7 L 36.0-46.0 % Mean Corpuscular Volume 84.6 80.0-100.0 fL Mean Corpuscular Hemoglobin 29.4 28.0-32.0 pg Mean Corpuscular Hemoglobin Concent 34.7 32.0-36.0 g/dL Red Cell Distribution Width 14.8 H 11.8-14.3 % Platelet Count 218 140-450 10^3/uL Mean Platelet Volume 8.8 6.9-10.8 fL Neutrophils (%) (Auto) 68.2 37.0-80.0 % Lymphocytes (%) (Auto) 23.2 10.0-50.0 % Monocytes (%) (Auto) 6.4 0.0-12.0 % Eosinophils (%) (Auto) 1.7 0.0-7.0 % Basophils (%) (Auto) 0.5 0.0-2.0 % Neutrophils # (Auto) 5.9 1.6-8.6 10 ^3/uL Lymphocytes # (Auto) 2.0 0.4-5.4 10 ^3/uL Monocytes # (Auto) 0.6 0-1.3 10 ^3/uL Eosinophils # (Auto) 0.1 0-0.8 10 ^3/uL Basophils # (Auto) 0 0-0.2 10 ^3/uL Nucleated Red Blood Cells 0.1 % Prothrombin Time 10.3 9.3-11.8 sec Prothrombin Time INR 0.97 0.9-1.15 Activated Partial Thromboplast Time 25.4 24.5-34.5 SEC Urine Color Light-yellow Yellow Urine Clarity Clear Clear Urine pH 6.5 5.0-9.0 Urine Specific [place] 1.014 1.001-1.035 Urine Protein Negative Negative Urine Ketones 2+ H Negative Urine Blood Negative Negative /uL Urine Nitrite Negative Negative Urine Bilirubin Negative Negative Urine Urobilinogen Normal Negative mg/dL Urine Leukocyte Esterase Negative Negative /uL Urine RBC None seen 0 - 4 /hpf Urine Microscopic WBC 1 0-5 /HPF Urine Squamous Epithelial Cells Few <5 /hpf Urine Bacteria Few H None Seen /hpf Urine Glucose Normal Normal mg/dL Sodium Level 138 136-145 mmol/L Potassium Level 3.1 L 3.5-5.1 mmol/L Chloride Level 105 98-107 mmol/L Carbon Dioxide Level 21 20-31 mmol/L Anion Gap 12 5-15 Blood Urea Nitrogen 6 L 9-23 mg/dL Creatinine 0.42 L 0.550-1.02 mg/dL Glomerular Filtration Rate Calc 138 >90 mL/min BUN/Creatinine Ratio 14.3 10.0-20.0 Serum Glucose 121 H 74-106 mg/dL Calcium Level 9.4 8.7-10.4 mg/dL Total Bilirubin 0.3 0.2-1.0 mg/dL Aspartate Amino Transferase (AST) 18 13-40 U/L Alanine Aminotransferase (ALT) < 9 7-40 U/L Alkaline Phosphatase 185 H 46-116 U/L Total Protein 5.9 5.7-8.2 g/dL Albumin 3.9 3.2-4.8 g/dL Urine Opiates Screen Neg NEGATIVE Urine Fentanyl Screen Neg NEGATIVE Urine Barbiturates Screen Neg NEGATIVE Urine Phencyclidine Screen Neg NEGATIVE Urine Amphetamines Screen Neg NEGATIVE Urine Benzodiazepines Screen Neg NEGATIVE Urine Cocaine Screen Neg NEGATIVE Urine Cannabinoids Screen Neg NEGATIVE Treponema pallidum Antibody Non-reactive Negative Hepatitis B Surface Antigen Negative Negative Hepatitis C Antibody Negative Negative HIV (1&2) Antibody Negative Negative Rubella IgG Antibody Pending Assessment Assessment 23yo IUP@38.3wks Induction of Labor for GDM A2 and maternal distance RH Negative Category I EFM SROM GBS negative Plan Plan Dr. Gonzáles consulted, ordered 6th dose of PO cytotec then later IV pitocin per protocol Blood sugar monitoring q4hrs then q2hrs in active labor 2 units PRBC on hold ordered monitoring per order Pain mgmt PRN Frequent position changes in and out of bed encouraged Limit SVE unless necessary Intrauterine resuscitation PRN Anticipate Plan discussed with: Patient, Spouse Visit Coding OBGYN Date of Service: Oct 29, 2024 Billing Provider: ABBY LÓPEZ CNM TREASURY ASSOCIATE Common Visit Codes: [id number] INP/OBS CARE(HIGH) KARLEE TOLEDO STDT MDWF Oct 29, 2024 21:38
[2024-10-30] MEDS: guaiFENesin 200 MG/10 ML UD PO PRN (00:55)
[2024-10-30] MEDS ORDERED: LACT. RINGERS/OXYTOCIN 20UNITS 1,000 ML IV SCH (02:00)
[2024-10-30] MEDS: ePHEDrine SULFATE 50 MG/ML AMP IV ONE (02:15)
[2024-10-30] MEDS: LACTATED RINGER'S 1,000 ML IV ONE (02:15)
[2024-10-30] MEDS: LACT. RINGERS/OXYTOCIN 20UNITS 1,000 ML IV SCH (04:11)
[2024-10-30] MEDS: ceFAZolin 2 GM/D5W50ml 50 ML IV ONE (05:42)
[2024-10-30] MEDS: ROPIVACAINE HCL 200 ML ONE (05:45)
--- NOTE | 2024-10-30 06:55 | DVHPN2 ---
Chief Complaints Patient reports: No new complaints Nursing reports: No new complaints Objective Medications Current Medications Medications (Trade) Dose Ordered Sig/Malika Route PRN Reason Start Time Stop Time Status Last Admin Cefazolin Sodium 50 ml @ 100 mls/hr Q8HR IV 10/30/24 14:00 Guaifenesin (Robitussin Plain Liquid) 200 mg Q4HP PRN PO FOR COUGH 10/30/24 00:00 10/30/24 00:55 Oxytocin 1,000 ml @ 6 ml/hr Q24H IV 10/30/24 01:30 10/30/24 04:11 Oxytocin 1,000 ml @ 125 mls/hr Q8H IV 10/30/24 02:00 Others ve-9cm/100/0 Studies Laboratory Tests 10/28/24 21:45 Test 10/28/24 21:45 Range/Units Serum Glucose 121 H 74-106 mg/dL Ass/Plan Assessment active labor Plan labor down Visit Coding OBGYN Date of Service: Oct 30, 2024 Billing Provider: THELMA RAMIREZ DO TREE SPECIALIST Common Visit Codes: [id number] INP/OBS CARE (HIGH) TREE SPECIALIST Procedure Codes: [id number] NON-STRESS TEST THELMA RAMIREZ DO Oct 30, 2024 06:55
[2024-10-30] MEDS: METHYLERGONOVINE MALEATE 0.2 MG/ML AMP IM ONE (09:19)
[2024-10-30] MEDS ORDERED: ONDANSETRON ODT 4 MG TAB PO PRN (09:45)
[2024-10-30] MEDS: ONDANSETRON HCL 4 MG/2 ML VIAL IV PRN (09:51)
[2024-10-30 10:07] LABS: Rubella Antibodies, IgG <0.90 index (Immune >0.99)
[2024-10-30] MEDS: IBUPROFEN 600 MG TAB PO PRN (10:12)
--- NOTE | 2024-10-30 12:34 | LDN2 ---
Labor and Delivery Note Date 10/30/24 Age 24 Para 2 EDC 4-20 EGA 38wks Diagnosis iol for gdmn Vaginal Delivery: VTX Vacuum Assisted: No Placenta: Spontaneous Sex: Female Apgars 8-9 Nuchal Cord Transected: Yes Amniotic Fluid: Clear Anesthesia epidural Episiotomy: No Extension: No Repaired with na EBL 300ml Labs Laboratory Tests 10/28/24 21:45: Hepatitis B Surface Antigen Negative, HIV (1&2) Antibody Negative Blood Bank 10/28/24 21:45: Blood Type O NEGATIVE Complications none Conditions stable Comments/Significant Med Esperanza spec exam no cxal lac Visit Coding OBGYN Date of Service: Oct 30, 2024 Billing Provider: THELMA RAMIREZ DO ACUPUNCTURIST Common Visit Codes: [id number] INP/OBS CARE (HIGH) ACUPUNCTURIST Procedure Codes: [id number] DELIVERY ONLY, 30962-67- ASSIST @ THELMA RAMIREZ DO Oct 30, 2024 12:34
[2024-10-30] MEDS: ceFAZolin 1GM/50ML 50 ML IV SCH (13:56)
[2024-10-30] MEDS: ACETAMINOPHEN 325 MG TAB PO PRN (14:00)
[2024-10-30 14:59] VITALS: BP 129/74; PULSE 88; RESP 16; TEMP 97.7; O2SAT 98
[2024-10-30 19:00] VITALS: BP 107/65; PULSE 81; RESP 18; TEMP 98.4; O2SAT 97
[2024-10-30 23:00] VITALS: BP 120/70; PULSE 82; RESP 16; TEMP 97.5; O2SAT 96
[2024-10-31 03:00] VITALS: BP 114/63; PULSE 81; RESP 18; TEMP 98.4; O2SAT 96
[2024-10-31 07:17] VITALS: BP 111/66; PULSE 80; RESP 17; TEMP 98; O2SAT 96; O2SAT 97
--- NOTE | 2024-10-31 07:38 | DVHPN2 ---
Chief Complaints Patient reports: No new complaints Nursing reports: No new complaints Objective Vitals Vital Signs Date Time Temp Pulse Resp B/P (MAP) Pulse Ox O2 Delivery O2 Flow Rate FiO2 10/31/24 03:00 98.4 81 18 114/63 (80) 96 98.4 10/30/24 19:00 Room Air Medications Current Medications Medications (Trade) Dose Ordered Sig/Malika Route PRN Reason Start Time Stop Time Status Last Admin Acetaminophen (Tylenol Tablet) 650 mg Q4HP PRN PO MILD PAIN (1-3 PAIN SCALE) 10/30/24 09:45 10/30/24 14:00 Cefazolin Sodium 50 ml @ 100 mls/hr Q8HR IV 10/30/24 14:00 10/30/24 22:27 Ibuprofen (Motrin Tablet) 600 mg Q6HP PRN PO MODERATE PAIN (4-6 PAIN SCALE) 10/30/24 09:45 10/30/24 20:25 Ondansetron HCl (Zofran Po) 4 mg Q4HPRN PRN PO NAUSEA / VOMITING 10/30/24 09:45 General: Normal Lungs: Normal Cardiovascular: Normal Abdominal: Soft Extremities: Normal Studies Laboratory Tests 10/28/24 21:45 Test 10/28/24 21:45 Range/Units Serum Glucose 121 H 74-106 mg/dL Ass/Plan Assessment s/p Plan dc home fu in 2wks Visit Coding OBGYN Date of Service: Oct 31, 2024 Billing Provider: THELMA RAMIREZ DO IMPLEMENTATION SPECIALIST [employer] Common Visit Codes: [id number] INP/OBS CARE (HIGH), 08731-OOM/OBS DISCH DAY >30MIN THELMA RAMIREZ DO Oct 31, 2024 07:38
--- NOTE | 2024-10-31 07:40 | DVHDS2 ---
Obstetrics Discharge Summary Obstetrics Discharge Summary Date of Admission: Oct 28, 2024 Date of Discharge: Oct 31, 2024 Reason For Admission: Induction of Labor Procedures: NST Intrapartum Procedures: Spontaneous vaginal deliv Procedures: None Operative Complicat: Others (1st deg periurethral lac) Discharge Diagnosis: Term -Delivered Discharge Information: Activity (Other), Diet (Routine), Medications (None), Instructions (Routine), Discharge to (Home), Discarge date (10-31) Visit Coding OBGYN Date of Service: Oct 31, 2024 Billing Provider: THELMA RAMIREZ DO SURVEY RODMAN Common Visit Codes: [id number] INP/OBS CARE(HIGH), 57087-IWT/OBS DISCH DAY >30MIN SURVEY RODMAN Procedure Codes: [id number] DELIVERY ONLY THELMA RAMIREZ DO Oct 31, 2024 07:40
== END 2024-10-31 11:40 | disposition home or self-care (01) | DRG 807 ==
LOC: LDRP 20:06 → UNDOADMOB 20:13 → OBSVTOIN 20:15 → INTOOBSV 20:15
PROVIDERS: ADMIT Obstetrics & Gynecology; ATTEND Obstetrics & Gynecology
PROC: 10E0XZZ Delivery of Products of Conception, External Approach (ICD-10-PCS; principal; 2024-10-30)
PROC: 3E0DXGC Introduction of Other Therapeutic Substance into Mouth and Pharynx, External Approach (ICD-10-PCS; 2024-10-30)
PROC: 3E0S3BZ Introduction of Anesthetic Agent into Epidural Space, Percutaneous Approach (ICD-10-PCS; 2024-10-30)
PROC: 00HU33Z Insertion of Infusion Device into Spinal Canal, Percutaneous Approach (ICD-10-PCS; 2024-10-30)
DX: O24.425 Gestational diabetes mellitus in childbirth, controlled by oral hypoglycemic drugs (principal); Z37.0 Single live birth; O69.81X0 Labor and delivery complicated by cord around neck, without compression, not applicable or unspecified; O76 Abnormality in fetal heart rate and rhythm complicating labor and delivery; O71.82 Other specified trauma to perineum and vulva; Z3A.38 38 weeks gestation of pregnancy; Z88.5 Allergy status to narcotic agent
CPT/HCPCS: 36415; 59200; 59409; 62282; 76815; 80053; 80307; 81001; 81002; 82948; 82962; 85025; 85610; 85730; 86703; 86762; 86780; 86803; 86850; 86900; 86901; 86922; 87340; 94760; 96360; 96361; 96365; 96366; A4344; G0378; J2405; J2590